=== PATIENT | female | born 1985 ===

== ENCOUNTER 2021-08-22 18:34 | Emergency (ER) ==
[~2021-08-22] VITALS: Ht 162.6 cm; Wt 101.5 kg
--- NOTE | 2021-08-22 19:00 | REP ---
INDICATION: trauma COMPARISON: None. TECHNIQUE: AP, lateral, bilateral oblique views right ankle. FINDINGS: Lateral swelling. No acute fracture or dislocation. Skeletal structures and joint spaces are intact and normal. Ankle mortise appears stable. No subcutaneous emphysema or radiodense foreign body. IMPRESSION: Lateral swelling. No acute fracture or dislocation. <Electronically signed by Louis Booth > 08/22/21 [id number]
== END 2021-08-23 00:05 | disposition left against medical advice (07) ==
LOC: M ED 18:34
DX: Z53.21 Procedure and treatment not carried out due to patient leaving prior to being seen by health care provider (principal)